=== PATIENT | female | born 1980 | race Two or more races ===

== ENCOUNTER 2020-08-10 09:45 | Inpatient (IN) | payer OTHER ==
[2020-08-10 11:16] VITALS: BMI 21.1
[2020-08-10] MEDS ORDERED: ONDANSETRON *ODT* 4 MG TABLET SL PRN (12:04)
[2020-08-10] MEDS ORDERED: BISMUTH SUBSALICYLATE 524 MG/30 ML PO PRN (12:04)
[2020-08-10] MEDS ORDERED: MAGNESIUM HYDROX 2400MG/30ML ORAL SUSPENSION 30 ML CUP PO PRN (12:04)
[2020-08-10] MEDS ORDERED: MAGNESIUM CITRATE 300 ML BOTTLE PO PRN (12:04)
[2020-08-10] MEDS ORDERED: MAG HYDROX/AL HYDROX/SIMETH 30 ML UNIT-DOSE CUP PO PRN (12:04)
[2020-08-10] MEDS ORDERED: NICOTINE POLACRILEX 2 MG GUM BUC PRN (12:04)
[2020-08-10] MEDS ORDERED: MENTHOL/PHENOL 1 EACH UD MM PRN (12:04)
[2020-08-10] MEDS ORDERED: ACETAMINOPHEN 325 MG TABLET (FP) PO PRN (12:04)
[2020-08-10] MEDS: hydrOXYzine PAMOATE 25 MG CAPSULE (FP) PO SCH ×3 (13:58→22:50)
[2020-08-10] MEDS: METHOCARBAMOL 500 MG TABLET PO PRN (13:58)
[2020-08-10] MEDS: LIDOCAINE 5% TOPICAL PATCH TP SCH (13:58)
[2020-08-10] MEDS: LORazepam 1 MG TABLET PO PRN (13:58)
[2020-08-10] MEDS: PRENATAL VITAMINS W/ FOLIC ACID TABLET (FP) PO SCH (13:59)
[2020-08-10] MEDS: NICOTINE 14 MG/24 HOURS TOPICAL PATCH TD SCH (13:59)
[2020-08-10] MEDS: SERTRALINE HCL 50 MG TABLET (FP) PO SCH (15:14)
[2020-08-10] MEDS ORDERED: cloNIDine HCL 0.1 MG TABLET PO PRN (16:06)
[2020-08-10] MEDS ORDERED: METHADONE (DETOX) 20 MG, METHADONE (DETOX) 5 MG PO ONE (17:00)
[2020-08-10] MEDS ORDERED: METHADONE HCL 5 MG TABLET (FOR DETOX USE ONLY) ONE (18:05)
[2020-08-10] MEDS ORDERED: METHADONE HCL 10 MG TABLET (FOR DETOX USE ONLY) ONE (18:05)
[2020-08-10] MEDS: LORazepam 2 MG TABLET PO SCH ×2 (18:08→22:50)
[2020-08-10] MEDS: THIAMINE HCL 100 MG TABLET (FP) PO SCH (22:49)
[2020-08-10] MEDS: QUEtiapine FUMARATE 300 MG TABLET PO SCH (22:49)
[2020-08-10] MEDS: MELATONIN 5 MG TABLETS PO SCH (22:57)
[2020-08-11] MEDS: LORazepam 1 MG TABLET PO PRN ×2 (00:38→14:05)
[2020-08-11] MEDS: hydrOXYzine PAMOATE 25 MG CAPSULE (FP) PO SCH ×5 (06:04→22:17)
[2020-08-11] MEDS: LORazepam 2 MG TABLET PO SCH ×4 (06:04→22:16)
[2020-08-11] MEDS ORDERED: METHADONE HCL 10 MG TABLET (FOR DETOX USE ONLY) PO ONE (10:00)
[2020-08-11] MEDS: PRENATAL VITAMINS W/ FOLIC ACID TABLET (FP) PO SCH (10:16)
[2020-08-11] MEDS: SERTRALINE HCL 50 MG TABLET (FP) PO SCH (10:16)
[2020-08-11] MEDS: NICOTINE 14 MG/24 HOURS TOPICAL PATCH TD SCH (10:17)
[2020-08-11] MEDS: METHOCARBAMOL 500 MG TABLET PO PRN ×2 (10:17→18:10)
[2020-08-11] MEDS: LIDOCAINE 5% TOPICAL PATCH TP SCH (10:17)
[2020-08-11 10:21] LABS: HEMATOCRIT 29.4 % (32.4-45.2); HEMOGLOBIN 9.9 GM/dL (10.7-15.3); MCH 33.7 pg (25.7-33.7); MCHC 33.5 g/dl (32.0-36.0); MEAN CELL VOLUME 100.4 fl (80-96); MEAN PLT VOLUME 7.8 fl (7.5-11.1); PLATELET COUNT 271 K/MM3 (134-434); RBC 2.93 M/mm3 (3.60-5.2); RDW 16.1 % (11.6-15.6); WHITE BLOOD COUNT 4.9 K/mm3 (4.0-10.0)
[2020-08-11 10:38] LABS: ALBUMIN 2.8 g/dl (3.4-5.0)
[2020-08-11 10:39] LABS: BLOOD UREA NITROGEN 11.8 mg/dL (7-18)
[2020-08-11 10:42] LABS: CREATININE 0.6 mg/dL (0.55-1.3)
[2020-08-11 10:43] LABS: BILIRUBIN,TOTAL 0.4 mg/dL (0.2-1)
[2020-08-11 13:04] LABS: HIV INTERPRETATION NEGATIVE (NEGATIVE)
[2020-08-11] MEDS: LIDOCAINE PATCH REMOVAL MC SCH ×2 (17:47→22:23)
[2020-08-11] MEDS: QUEtiapine FUMARATE 300 MG TABLET PO SCH (22:17)
[2020-08-11] MEDS: THIAMINE HCL 100 MG TABLET (FP) PO SCH (22:17)
[2020-08-11] MEDS: MELATONIN 5 MG TABLETS PO SCH (22:22)
[2020-08-12] MEDS: hydrOXYzine PAMOATE 25 MG CAPSULE (FP) PO SCH ×5 (05:42→22:01)
[2020-08-12] MEDS: METHOCARBAMOL 500 MG TABLET PO PRN ×3 (05:42→18:12)
[2020-08-12] MEDS: LORazepam 1 MG TABLET PO SCH ×4 (05:42→22:01)
[2020-08-12] MEDS: ACETAMINOPHEN 325 MG TABLET (FP) PO PRN (05:43)
[2020-08-12] MEDS ORDERED: METHADONE HCL 10 MG TABLET (FOR DETOX USE ONLY) ONE (08:43)
[2020-08-12] MEDS ORDERED: METHADONE HCL 5 MG TABLET (FOR DETOX USE ONLY) ONE (08:43)
[2020-08-12] MEDS ORDERED: METHADONE (DETOX) 10 MG, METHADONE (DETOX) 5 MG PO ONE (10:00)
[2020-08-12] MEDS: NICOTINE 14 MG/24 HOURS TOPICAL PATCH TD SCH (10:03)
[2020-08-12] MEDS: PRENATAL VITAMINS W/ FOLIC ACID TABLET (FP) PO SCH (10:05)
[2020-08-12] MEDS: LIDOCAINE 5% TOPICAL PATCH TP SCH (10:05)
[2020-08-12] MEDS: SERTRALINE HCL 50 MG TABLET (FP) PO SCH (10:05)
[2020-08-12] MEDS: LORazepam 1 MG TABLET PO PRN (13:04)
[2020-08-12] MEDS: QUEtiapine FUMARATE 300 MG TABLET PO SCH (22:01)
[2020-08-12] MEDS: MELATONIN 5 MG TABLETS PO SCH (22:01)
[2020-08-12] MEDS: THIAMINE HCL 100 MG TABLET (FP) PO SCH (22:01)
[2020-08-12] MEDS: LIDOCAINE PATCH REMOVAL MC SCH (22:01)
[2020-08-12] MEDS: IBUPROFEN 400 MG TABLET (FP) PO PRN (22:04)
[2020-08-13] MEDS: LORazepam 0.5 MG TABLET PO PRN ×2 (00:34→12:17)
[2020-08-13] MEDS: METHOCARBAMOL 500 MG TABLET PO PRN ×4 (00:35→22:05)
[2020-08-13] MEDS: hydrOXYzine PAMOATE 25 MG CAPSULE (FP) PO SCH ×5 (06:14→22:04)
[2020-08-13] MEDS: LORazepam 0.5 MG TABLET PO SCH ×4 (06:14→22:04)
[2020-08-13] MEDS ORDERED: METHADONE HCL 10 MG TABLET (FOR DETOX USE ONLY) PO ONE (10:00)
[2020-08-13 10:07] LABS: SARS-CoV-2 NAA Not Detected (Not Detected)
[2020-08-13] MEDS: NICOTINE 14 MG/24 HOURS TOPICAL PATCH TD SCH (10:33)
[2020-08-13] MEDS: SERTRALINE HCL 50 MG TABLET (FP) PO SCH (10:33)
[2020-08-13] MEDS: LIDOCAINE 5% TOPICAL PATCH TP SCH (10:33)
[2020-08-13] MEDS: PRENATAL VITAMINS W/ FOLIC ACID TABLET (FP) PO SCH (10:33)
[2020-08-13] MEDS: IBUPROFEN 400 MG TABLET (FP) PO PRN (10:35)
[2020-08-13] MEDS ORDERED: MASKS NR ONE (15:13)
[2020-08-13] MEDS: MELATONIN 5 MG TABLETS PO SCH (22:03)
[2020-08-13] MEDS: THIAMINE HCL 100 MG TABLET (FP) PO SCH (22:03)
[2020-08-13] MEDS: LIDOCAINE PATCH REMOVAL MC SCH (22:03)
[2020-08-13] MEDS: QUEtiapine FUMARATE 300 MG TABLET PO SCH (22:04)
[2020-08-14] MEDS ORDERED: LORazepam 0.5 MG TABLET PO ONE (05:00)
[2020-08-14] MEDS: hydrOXYzine PAMOATE 25 MG CAPSULE (FP) PO SCH ×2 (05:44→10:29)
[2020-08-14] MEDS: METHOCARBAMOL 500 MG TABLET PO PRN (05:45)
[2020-08-14] MEDS ORDERED: METHADONE HCL 5 MG TABLET (FOR DETOX USE ONLY) PO ONE (06:00)
[2020-08-14] MEDS: ACETAMINOPHEN 325 MG TABLET (FP) PO PRN (08:47)
[2020-08-14 09:49] VITALS: BP 124/84; PULSE 99; TEMP 98.4
[2020-08-14] MEDS: SERTRALINE HCL 50 MG TABLET (FP) PO SCH (10:27)
[2020-08-14] MEDS: PRENATAL VITAMINS W/ FOLIC ACID TABLET (FP) PO SCH (10:29)
[2020-08-14] MEDS: LIDOCAINE 5% TOPICAL PATCH TP SCH (10:29)
[2020-08-14] MEDS: NICOTINE 14 MG/24 HOURS TOPICAL PATCH TD SCH (10:29)
== END 2020-08-14 10:33 | disposition home or self-care (01) | DRG 773 ==
LOC: YASAS 09:45 → Y6N 12:07
PROVIDERS: ADMIT Allergy & Immunology; ATTEND Allergy & Immunology
PROC: HZ2ZZZZ Detoxification Services for Substance Abuse Treatment (ICD-10-PCS; principal; 2020-08-10)
DX: F10.230 Alcohol dependence with withdrawal, uncomplicated (principal); F11.23 Opioid dependence with withdrawal; F12.20 Cannabis dependence, uncomplicated; F17.210 Nicotine dependence, cigarettes, uncomplicated; F10.280 Alcohol dependence with alcohol-induced anxiety disorder; F10.282 Alcohol dependence with alcohol-induced sleep disorder; M87.852 Other osteonecrosis, left femur; M87.851 Other osteonecrosis, right femur; Z62.810 Personal history of physical and sexual abuse in childhood; Z88.6 Allergy status to analgesic agent; Z59.0 Homelessness
CPT/HCPCS: 36415; 80053; 82728; 83540; 83550; 85027; 86780; 87389; C9803; U0003; U0005